=== PATIENT | male | born 1995 | race Caucasian/White ===

== ENCOUNTER → 2021-01-06 13:55 | Outpatient (REF) | payer BC, SELFPAY ==
--- NOTE | 2021-01-06 13:58 | CA_ITS ---
Transthoracic Echocardiogram Patient (Last, First, Middle): Gerry San, Gender: Male Date of : 1995 Age: 25 Procedure Date: 01/06/2021 Procedure Type: Transthoracic Echocardiogram Location: OP Height: 180.34 cm Weight: 65.77 kg BSA: 1.84 m2 Heart Rate: bpm BP: 126 / 60 mmHg Telecommunications Line Mechanic: [place] Referring MD: Frank Javed [facility] Analytical Data Miner: Nestor Muñoz MD Symptoms: R01.1 - Cardiac murmur, unspecified Study Quality: Fair ECG Rhythm: Sinus Conclusions: - Normal study Findings Left Ventricle Normal left ventricular size, thickness, and systolic function. The visually estimated ejection fraction is between 65-70%. Diastolic function is normal for age. Right Ventricle Normal right ventricular cavity size and systolic function. Atria Both atria are normal in size. There is no evidence of interatrial shunt. Aortic Valve Normal aortic valve structure and function. There is no aortic valve stenosis. There is no aortic valve regurgitation. Mitral Valve Normal mitral valve structure and function. There is trace mitral valve regurgitation. There is no mitral valve stenosis. Pulmonic Valve The pulmonic valve is likely normal. There is trace pulmonic valve regurgitation. Tricuspid Valve Normal tricuspid valve structure. There is trace tricuspid valve regurgitation. The right ventricular systolic pressure is normal. The right ventricular systolic pressure is 20 mmHg. Normal right atrial pressure. There is no evidence of pulmonary hypertension. Great Vessels All visible segments of the aorta are normal in size. The visualized portions of the pulmonary artery and branches are normal. Venous The inferior vena cava is normal in size. Inferior vena cava flow is normal. Pericardium/Pleural There is no evidence of pericardial effusion. Prior Study Comparison No prior study available for comparison. Measurements M-Mode Liner Measurements Normals - Women/Men AOV Cusps: 2.20 1.5-2.6 cm/m2 2D Linear Measurements IVSd: 0.68 0.6-0.9/0.6-1.0 cm LVIDd: 5.43 3.9-5.3/4.2-5.9 cm LVIDd Index: 2.95 2.4-3.2/2.2-3.1 cm/m2 LVIDs: 3.61 2.0-3.6 cm LVPWd: 0.61 0.7-1.1 cm Ao Root: 2.30 2.1-3.5 cm LA Diam: 2.60 2.7-3.8/3.0-4.0 cm LAIDs Index: 1.41 1.5-2.3 cm/m2 LV Mass: 148.67 67-162/88-224 g LV Mass Index: 80.80 43-95/49-115 g/m2 LVOT Diam: 2.10 3.0+(-)1.3 cm 2D Systolic Function EF 4C: 74.80 >55% EF 2C: 64.30 >55% EF BiP: 69.50 >55% Mitral Valve MV Pk E: 0.96 MV PK A: 0.44 MV Decel Time: 234.00 E/A: 2.20 E'Lateral: 23.30 E'Medial: 14.30 E/E' Med: 6.70 E/E' Lat: 4.10 PHT: 69.00 MVA PHT: 3.19 Decel Ellsworth: 4.07 Aortic Valve AoV Pk Nimesh: 1.65 AoV Mn Nimesh: 1.22 AoV VTI: 0.35 AoV Pk Grad: 11.00 Aov Mn Grad: 7.00 RACHAEL Cont.VTI: 2.73 LVOT LVOT Pk Nimesh: 1.38 LVOT Mn Nimesh: 0.98 LVOT VTI: 0.28 LVOT Pk Grad: 8.00 LVOT Mn Grad: 4.00 LVOT Diam: 2.10 LVOT Area: 3.46 Diastolic Function MV Pk E: 0.96 MV Pk A: 0.44 E/A: 2.20 E'Medial: 14.30 E/E' Med: 6.70 E' Laterial: 23.30 E/E' Lat: 4.10 Tricuspid Valve TR Pk Nimesh: 2.09 TR Pk Grad: 17.00 RA Press: 3.00 RVSP: 20.00 Great Vessels Aorta Ao Root-2D: 2.30 2.0-3.7 cm Ao Asc: 2.60 2.1-3.4 cm Ao Arch: 2.10 Pulmonary Valve PV Pk Nimesh: 1.56 Peak PV Grad: 10.00 Updated in Other Vendor System with Status of Final Nestor Muñoz MD electronically signed on 01/06/2021 4:05:48 PM with status of Final
== END ==
LOC: HO.CARD 13:55
PROVIDERS: PCP Nurse Practitioner Family; Visit Provider Nurse Practitioner Family
DX: R01.1 Cardiac murmur, unspecified (principal)
CPT/HCPCS: 93306